=== PATIENT | male | born 1975 | race Caucasian/White ===

== ENCOUNTER 2016-06-22 00:21 | Observation (INO) | payer OTHER ==
[~2016-06-22] VITALS: Ht 185.4 cm; Wt 122.5 kg
[2016-06-22 06:03] LABS: HEMOGLOBIN 14.7 gm/dl (14.0-17.5); RED BLOOD COUNT 4.76 M/UL (4.20-5.50)
[2016-06-22 06:27] LABS: BUN/CREATININE RATIO 11 (0-10)
[2016-06-22] MEDS ORDERED: TRICON CAPSULE1 EACH PO (17:37)
[2016-06-22] MEDS ORDERED: PAXIL30 MG PO (17:37)
[2016-06-22] MEDS ORDERED: LOTREL 10-20 M1 EACH PO (17:37)
[2016-06-23 04:54] LABS: HEMOGLOBIN 14.2 gm/dl (14.0-17.5); RED BLOOD COUNT 4.66 M/UL (4.20-5.50)
[2016-06-23 05:09] LABS: BUN/CREATININE RATIO 10 (0-10)
[2016-06-24 04:12] LABS: HEMOGLOBIN 15.3 gm/dl (14.0-17.5); RED BLOOD COUNT 4.98 M/UL (4.20-5.50); WHITE BLOOD COUNT 5.1 K/UL (4.5-11.0)
[2016-06-24 04:31] LABS: BUN/CREATININE RATIO 10 (0-10)
== END 2016-06-24 13:27 | disposition home or self-care (01) ==
LOC: ER1 00:21 → ZEROF 11:00 → MED SURG 4 17:27
PROVIDERS: Physician Assistant; ADMIT Internal Medicine Infectious Disease
DX: K85.90 Acute pancreatitis without necrosis or infection, unspecified (principal); K80.20 Calculus of gallbladder without cholecystitis without obstruction; R74.0 Nonspecific elevation of levels of transaminase and lactic acid dehydrogenase [LDH]; F32.9 Major depressive disorder, single episode, unspecified; M54.9 Dorsalgia, unspecified; G89.29 Other chronic pain; Z72.89 Other problems related to lifestyle; Z79.899 Other long term (current) drug therapy; Z87.891 Personal history of nicotine dependence
CPT/HCPCS: 36415; 74181; 76705; 80053; 80074; 81001; 82150; 82248; 82977; 83690; 83735; 85025; 85027; 87086; 96374; 96375; 96376; 99284; G0378; J2270; J2405; J7030